=== PATIENT | male | born 1970 | race African-American/Black ===

== ENCOUNTER 2022-11-14 16:45 | Emergency (ER) | payer MEDICAID ==
[~2022-11-14] VITALS: Ht 170.2 cm; Wt 73.0 kg
[2022-11-14 17:03] VITALS: BP 166/96
[2022-11-14] MEDS ORDERED: CHLORPROMAZINE HCL 25 MG TABLET PO ONE (17:15)
[2022-11-14] MEDS ORDERED: CHLO10TA10 MT (18:36)
== END 2022-11-14 19:12 | disposition home or self-care (01) ==
LOC: ER 17:08
DX: R06.6 Hiccough (principal)
CPT/HCPCS: 71045; 99283; Q0161

== ENCOUNTER 2022-11-22 13:17 | Emergency (ER) | payer MEDICAID ==
[~2022-11-22] VITALS: Ht 172.7 cm; Wt 73.0 kg
[~2022-11-22 13:17] MED LIST: CHLO10TA10 MT
[2022-11-22 13:27] VITALS: BP 139/91
[2022-11-22] MEDS ORDERED: PANT20TA17 MT (14:18)
== END 2022-11-22 14:27 | disposition home or self-care (01) ==
LOC: ER 13:17
DX: K21.9 Gastro-esophageal reflux disease without esophagitis (principal)
CPT/HCPCS: 99283

== ENCOUNTER 2023-04-04 18:03 | Emergency (ER) | payer BC, MEDICAID ==
[~2023-04-04] VITALS: Ht 167.6 cm; Wt 68.0 kg
[~2023-04-04 18:03] MED LIST changes: +PANT20TA17 MT
[2023-04-04 18:13] VITALS: O2SAT 99
[2023-04-04] MEDS ORDERED: BACITRACIN ZINC OINT UDPKT TOP NR (19:30)
[2023-04-04] MEDS ORDERED: LIDOCAINE HCL/PF 1% 10 MG/ML 5ML VIAL INFIL NR (19:30)
[2023-04-04] MEDS: AMOXICILLIN/POTASSIUM CLAVULANATE 875/125MG TAB PO NR ×2 (19:30→23:00)
[2023-04-04] MEDS ORDERED: IBUPROFEN 600MG TABLET PO NR ×2 (19:30→22:45)
[2023-04-04] MEDS ORDERED: ACETAMINOPHEN 325MG TABLET PO NR (19:57)
[2023-04-04 22:59] VITALS: BP 156/100
[2023-04-04] MEDS ORDERED: AMOX1TAB16 MT (23:20)
[2023-04-04] MEDS ORDERED: ACET-2708 PO (23:20)
[2023-04-04 23:36] VITALS: PULSE 89; RESP 16; TEMP 98.5
== END 2023-04-04 23:38 | disposition home or self-care (01) ==
LOC: ER 18:03
DX: S61.411A Laceration without foreign body of right hand, initial encounter (principal); K21.9 Gastro-esophageal reflux disease without esophagitis; Z98.890 Other specified postprocedural states; W26.8XXA Contact with other sharp object(s), not elsewhere classified, initial encounter; Y93.89 Activity, other specified; Y92.89 Other specified places as the place of occurrence of the external cause; Y99.8 Other external cause status
CPT/HCPCS: 73130; 99284; J3490; Z7610 ×2

== ENCOUNTER 2023-04-06 19:13 | Emergency (ER) | payer BC ==
[~2023-04-06] VITALS: Ht 170.2 cm; Wt 68.0 kg
[~2023-04-06 19:13] MED LIST changes: +ACET-2708 PO; +AMOX1TAB16 MT
[2023-04-06 19:25] VITALS: BP 144/92; RESP 17; TEMP 98.8; O2SAT 97
[2023-04-06 19:28] VITALS: PULSE 98
== END 2023-04-06 20:42 | disposition home or self-care (01) ==
LOC: ER 19:13
DX: Z48.00 Encounter for change or removal of nonsurgical wound dressing (principal)
CPT/HCPCS: 99281

== ENCOUNTER 2023-10-31 | Emergency (ER) | payer BC, MEDICAID ==
[~2023-10-31] VITALS: Ht 170.2 cm; Wt 61.0 kg
[2023-10-31 00:33] VITALS: BP 126/72; PULSE 100; RESP 16; TEMP 98; O2SAT 98
[2023-10-31] MEDS: TRANEXAMIC ACID 1,000MG/10ML IV ONE (01:21)
== END 2023-10-31 02:22 | disposition home or self-care (01) ==
LOC: ER
DX: M96.1 Postlaminectomy syndrome, not elsewhere classified (principal); Z48.01 Encounter for change or removal of surgical wound dressing; Z98.890 Other specified postprocedural states
CPT/HCPCS: 99281; Z7610